=== PATIENT | female | born 1970 | race Caucasian/White ===

== ENCOUNTER 2020-12-04 12:09 | Emergency (ER) | payer OTHER, SELFPAY ==
[2020-12-04 12:28] VITALS: BP 148/99; PULSE 110; RESP 17; TEMP 36; O2SAT 96; BMI 34.8
--- NOTE | 2020-12-04 12:35 | HMH.EDUTC ---
[facility] [place] Disposition Clinical Impression: Cystitis Disposition: Home, Self-Care Condition on Discharge: Good Instructions: Urinary Tract Infection, DI for Hematuria, Trimethoprim/Sulfamethoxazole (Alternative Therapy) Additional Instructions: *Increase fluids. Water not Soda or Tea *Start antibiotic immediately and be sure to take as ordered for the FULL length of time although you should start to see improvement over the next 48 hours *Be SURE to follow up anytime for new or worsening symptoms with your family doctor. AND in 48 hours for urine culture results with your family doctor, if you do not have a doctor then you may call back to the [facility] for urine culture results and further treatment. We do recommend that you choose and establish care with a Primary Care Physician. AND follow up with them in 10-14 days to repeat UA to ensure infection is resolved and blood no longer present Call your doctor office and make appointment for 48 hours (2 days from today) to follow up and get the results of your urine culture and further treatment Follow up with your Family Doctor or Urologist if no improvement or any worsening of symptoms Return if needed Prescriptions: Sulfamethoxazole/Trimethoprim [Bactrim DS tablet] 1 each PO BID 3 Days #6 tab Transmission Status: Pending to [facility] Referrals: PCP,Angela [Primary Care Provider] - As needed Time of Disposition: 12:57 Medical Decision Making - Carlos Inquiry Pt receiving controlled substance: Angela Gonzalez was queried for this patient: No Vital Signs: 12/04/20 12:28 Temperature 96.8 F L Temperature Source Oral Pulse Rate [Right Brachial] 110 H Respiratory Rate 17 Blood Pressure [Right Arm] 148/99 H Blood Pressure Mean [Right Arm] 115 Blood Pressure Source [Right Arm] Automatic Cuff Blood Pressure Position [Right Arm] Sitting 02 Sat by Pulse Oximetry 96 Oxygen Delivery Method Room Air - Lab Data Lab results reviewed: Yes: I reviewed the patient's lab results. Lab Results 12/04/20 12:11: Urine Color Yellow, Urine Appearance Clear, Urine pH 5.5, Ur Specific Gateway 1.030, Urine Protein 1+, Urine Glucose (UA) Negative, Urine Ketones Negative, Urine Blood 3+, Urine Nitrate Negative, Urine Bilirubin 1+ A, Urine Urobilinogen 0.2, Ur Leukocyte Esterase Negative [facility] [place] HPI - General Stated complaint: frequency and burning Time Seen by Provider: 12/04/20 12:36 Mode of Arrival: Ambulatory Source of Information: Patient Limitations: No Limitations Description of Symptoms (Recalled from Triage Doc. by RN): UTI symptoms x3-4 days HEENT Symptoms (Recalled from RN notes): No Resp Symptoms (Recalled from RN notes): No Skin Symptoms (Recalled from RN notes): No MS Symptoms (Recalled from RN notes): No Functional Status (Recalled from RN notes): wnl - History of Present Illness Provider Complaint: Patient state that she sees a urologist in [facility] States that she has been having burning with urination and feeling of urgency and frequency along with pressure like she has to go States that she noticed her urine was dark with strong smell so she came in to get tested Denies history of Kidney stones and denies fever, chills, body aches. - Related Data Previous Rx's Medication Instructions Recorded Sulfamethoxazole/Trimethoprim 1 each PO BID 3 Days #6 tab 12/04/20 [Bactrim DS tablet] Allergies Allergy/AdvReac Type Severity Reaction Status Date / Time Penicillins AdvReac Verified 12/04/20 12:27 - Worker's Comp Is this a Worker's Comp case?: No [facility] History - Hepatitis A Screen Drug use history?: No High risk sexual behaviors?: No History of sexually transmitted infection?: No Currently employed?: No Childcare worker?: No Do you have indoor plumbing?: Yes Do you have electricity?: Yes Attestation statement:: This patient has been screened for Hepatitis A risk factors. I have reviewed the patient's past medical history: Yes ROS Obtained: Yes All
[2020-12-04 12:47] LABS: Apearance,Urine Clear (Clear); Bilirubin,Urine 1+ (Negative); Blood, Urine 3+ (Negative); Color,Urine Yellow (Yellow); Glucose,Urine (UA) Negative (Negative); Ketones,Urine Negative (Negative); PH,Urine 5.5 (5.0-8.5); Protein,Urine 1+ (Negative); UTC Leukocyte Esterase,Urine Negative (Negative); Urobilinogen,Urine 0.2 EU/dl (0.2)
[2020-12-04 12:48] LABS: UTC Nitrate,Urine Negative (Negative)
[2020-12-04 12:59] VITALS: BP 148/99; PULSE 110; RESP 17; TEMP 36; O2SAT 96
== END 2020-12-04 13:00 | disposition home or self-care (01) ==
PROVIDERS: Emergency Provider Nurse Practitioner; PCP Nurse Practitioner
DX: N30.00 Acute cystitis without hematuria (principal); Z88.0 Allergy status to penicillin
CPT/HCPCS: 81003; 99202; G0463

== ENCOUNTER 2021-10-03 07:28 | Day surgery (SDC) | payer OTHER, SELFPAY ==
[2021-08-25 13:41] VITALS: BMI 31.4
[2021-09-30 15:24] VITALS: BMI 31.3
[2021-10-03] VITALS (13 sets, daily range): BP systolic 98–135; BP diastolic 64–90; PULSE 81–98; RESP 16–18; TEMP 36.1–37; O2SAT 95–99
[2021-10-03 08:15] LABS: HCG Qualitative, Serum Negative (Negative)
--- NOTE | 2021-10-03 09:01 | P.PCN_ITS ---
- Procedure: Date: 10/03/21 Patient Date of :: 1970 Procedure Performed:: Total colonoscopy to terminal ileum with polypectomy and biopsies Indications:: Patient is a 51-year-old female. 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 She was sent for screening colonoscopy. She does state that she had a colonoscopy about 10 years ago. Recently she has had some change in her bowels with some intermittent and mucousy stools. This seems to be sporadic and is not related to any dietary change. Performing Provider:: Kristopher Aguiar MD Referring Provider:: Viri Adair Sedation:: Versed 7 mg, fentanyl 150 mcg. Procedure:: Patient was taken to the endoscopy procedure room. She was positioned in lateral decubitus position. Adequate intravenous sedation was achieved with anesthesia titration of propofol. Variable stiffness Olympus colonoscope was inserted via the anus. This advanced to the cecum. There was some greenish liquid throughout the colon which was suctioned free. Ileocecal valve and appendiceal orifice were clearly identified. Colonoscope was advanced a short distance briefly into the terminal ileum. A couple biopsies were obtained. Colonoscope was withdrawn into the cecum. Colonoscope was slowly withdrawn through the colon with careful surveillance. Several random biopsies were obtained differentiating right and left colon with cold biopsy forceps. In the distal transverse colon there was a small subtle polyp removed with cold cutting snare. Rectosigmoid region there were a couple of hyperplastic appearing polyps removed with cold biopsy forceps. She did have some rare sigmoid diverticulosis. Retroflexion within the rectum revealed no evidence of any pathologic internal hemorrhoids. Colonoscope was withdrawn. Findings:: Small distal transverse polyp Rare sigmoid diverticulosis Hyperplastic appearing rectosigmoid polyps Recommendations:: No clear etiology as to the mucousy stools. Check pathology on random biopsies. Etiology may be functional/dietary/medical. Repeat colonoscopy based on polyps pending pathology, likely 5 years. Complications:: None immediately apparent Estimated blood obtained (mL): 3
--- NOTE | 2021-10-03 10:24 | MM_ITS ---
PROCEDURE INFORMATION: Exam: Bilateral Screening 3D Mammography Exam date and time: 10/03/2021 10:24 AM Age: 51 years old Clinical indication: Encounter for screening mammogram for malignant neoplasm of breast TECHNIQUE: Imaging protocol: Bilateral Screening tomosynthesis and 2D mammography including computer-aided detection (CAD) when performed. COMPARISON: [facility] MAMMO COMBO-SR 05/14/2017 11:16 AM FINDINGS: MAMMOGRAPHY: Breast composition: The breasts are almost entirely fatty. Mass: None. Architectural distortion: None. Calcifications: No suspicious calcifications. Asymmetric density: None. Skin thickening: None. Axillary adenopathy: None. IMPRESSION: No mammographic evidence of malignancy. Annual screening is recommended unless otherwise clinically indicated. ASSESSMENT: BI-RADS Category 1: Negative
== END 2021-10-03 09:37 | disposition home or self-care (01) ==
LOC: OUTP 07:29
PROVIDERS: PCP Nurse Practitioner; Visit Provider Surgery
PROC: 0DJD8ZZ Inspection of Lower Intestinal Tract, Via Natural or Artificial Opening Endoscopic (ICD-10-PCS; CPT 45380; principal; 2021-10-03 08:30)
DX: Z12.31 Encounter for screening mammogram for malignant neoplasm of breast (principal); Z12.11 Encounter for screening for malignant neoplasm of colon; K63.5 Polyp of colon; K57.32 Diverticulitis of large intestine without perforation or abscess without bleeding; Z88.0 Allergy status to penicillin
CPT/HCPCS: 45380; 45385; 77063; 77067; 84703; 99152; 99153